=== PATIENT | male | born 1970 | race Caucasian/White ===

== ENCOUNTER 2018-09-20 15:02 | Emergency (ER) | payer MEDICARE, OTHER ==
[2018-09-20 15:21] VITALS: BP 135/86; PULSE 88; RESP 14; TEMP 97; O2SAT 99
[2018-09-20] MEDS ORDERED: LORAZEPAM 2 MG/ML SOL IV ONE (15:31)
[2018-09-20] MEDS ORDERED: LORAZEPAM 2 MG/ML SOL IM ONE (15:34)
[2018-09-20] MEDS ORDERED: LORAZEPAM 2 MG/ML SOL ONE (15:35)
== END 2018-09-20 15:55 | disposition home or self-care (01) | DRG 880 ==
LOC: ED 15:02
DX: F41.9 Anxiety disorder, unspecified (principal)
CPT/HCPCS: 93005; 96372; 99282; 99283; J2060